=== PATIENT | female | born 1950 | race Caucasian/White ===

== ENCOUNTER 2018-10-13 11:07 | Outpatient (CLI) | payer MEDICARE, SELFPAY ==
[2018-10-13 13:13] LABS: C-Reactive Protein 7.53 mg/dL (0.0-0.3)
[2018-10-13 14:02] LABS: ESR 92 MM/HR (0-30)
[2018-10-14 15:11] LABS: ANA Interpretation Positive (NEGAT); ANA Titer Pattern 1:320 Speckled
== END 2018-10-13 11:27 ==
PROVIDERS: PCP Family Medicine; Visit Provider Family Medicine
DX: M35.3 Polymyalgia rheumatica (principal)
CPT/HCPCS: 36415; 85652; 86038; 86140

== ENCOUNTER 2018-12-29 11:23 | Outpatient (CLI) | payer MEDICARE, SELFPAY ==
[2018-12-29 12:26] LABS: HCT 39.1 % (36.0-46.0); HGB 12.9 g/dL (12.0-15.5); Mean Corpuscular Hemoglobin 28.5 pg (27.0-33.0); Mean Corpuscular Volume 86.5 fL (80-95); Mean Platelet Volume 8.9 fL (8.0-11.0); Platelet Count 287 x1000/uL (130-400); RBC 4.52 m/cumm (4.00-5.20); RBC Distribution Width 14.4 % (11.7-14.6)
[2018-12-29 12:55] LABS: ALT 27 U/L (12-78); AST 17 U/L (15-37); Albumin 4.3 g/dL (3.4-5.0); Alkaline Phosphatase 69 U/L (46-116); Anion Gap 12.3 mmol/L (3-11); BUN 17 mg/dL (7-18); Bilirubin, Total 0.3 mg/dL (0.2-1.0); C-Reactive Protein 0.28 mg/dL (0.0-0.3); CO2 25.7 mmol/L (21.0-32.0); CREATININE 0.82 mg/dL (0.55-1.02); Calcium 9.3 mg/dL (8.5-10.1); Chloride 103 mmol/L (98-107); Creatine Kinase 121 U/L (26-192); Glucose 84 mg/dL (70-100); Potassium 3.5 mmol/L (3.5-5.1); Sodium 141 mmol/L (136-145); Total Protein 7.1 g/dL (6.4-8.2)
[2018-12-29 14:01] LABS: ESR 15 MM/HR (0-30)
[2018-12-30 09:27] LABS: C3 Complement 127 mg/dL (81-157)
[2018-12-30 09:32] LABS: C4 Complement 36 mg/dL (13-39)
[2018-12-30 16:38] LABS: JO 1 Ab, IgG <0.2 U; Scl 70 Antibodies, IgG <0.2 U
[2018-12-31 12:25] LABS: SS-B (La) Ab, IgG 2.3 Units (<20)
[2018-12-31 12:27] LABS: RNP Ab, IgG 2.3 Units (<20); SS-A Antibody 2.5 Units (<20); Sm (Smith) Ab, IgG 2.8 Units (<20)
[2018-12-31 16:56] LABS: LA Cascade Summary SEE COMMENTS; Silica Clotting Time 37.4 sec (30.2-48.4)
== END 2018-12-29 11:43 ==
PROVIDERS: PCP Family Medicine; Visit Provider Internal Medicine Rheumatology
DX: R76.8 Other specified abnormal immunological findings in serum (principal); M35.3 Polymyalgia rheumatica; Z79.899 Other long term (current) drug therapy
CPT/HCPCS: 36415; 80053; 82550; 85027; 85652; 86147; 87116; 84295; 86140; 86160; 86235

== ENCOUNTER 2019-11-26 08:50 | Outpatient (CLI) | payer MEDICARE, SELFPAY ==
--- NOTE | 2019-11-26 09:15 | DI.RAD_ITS ---
EXAM: XR LUMBAR SPINE COMPLETE INDICATION: eval lumbar spine for stenosis, BACK PAIN COMPARISON: No exams were available for comparison TECHNIQUE: 2D digital imaging was performed. FINDINGS: The vertebral bodies are well maintained in height. Small to moderate sized endplate osteophytes are seen throughout. The disc spaces are narrowed at all levels, the greatest at L 4-5 and L5-S1. There is also disc space narrowing of the lower thoracic spine. There is severe degenerative changes of th e facet joints. There is mild spondylolisthesis at L2-3. No spondylolysis is seen. There is a mild degenerative scoliosis. The aorta is calcified but normal in diameter. There is neural foraminal n arrowing which appears severe at L 5-S1. Degenerative changes are also seen of the SI joints and hip joints. IMPRESSION: Advanced degenerative disc changes and facet degenerative changes. DATA REPOSITORY: RADIATION DOSE DELIVERED:
== END 2019-11-26 09:10 ==
PROVIDERS: PCP Family Medicine; Referring Provider Family Medicine; Visit Provider Student in an Organized Health Care Education/Training Program
DX: M25.78 Osteophyte, vertebrae (principal); M48.07 Spinal stenosis, lumbosacral region; M47.27 Other spondylosis with radiculopathy, lumbosacral region; M47.26 Other spondylosis with radiculopathy, lumbar region; M51.16 Intervertebral disc disorders with radiculopathy, lumbar region; M51.14 Intervertebral disc disorders with radiculopathy, thoracic region; M48.062 Spinal stenosis, lumbar region with neurogenic claudication
CPT/HCPCS: 99214; 72110

== ENCOUNTER 2022-02-01 02:05 | Outpatient (CLI) | payer MEDICARE, SELFPAY ==
[2022-02-01 12:56] LABS: Anion Gap 10.3 mmol/L (3-11); BUN 15 mg/dL (7-18); CO2 28.7 mmol/L (21.0-32.0); CREATININE 0.7 mg/dL (0.55-1.02); Calcium 9.1 mg/dL (8.5-10.1); Chloride 103 mmol/L (98-107); Glucose 103 mg/dL (74-106); Potassium 3.7 mmol/L (3.5-5.1); Sodium 142 mmol/L (136-145)
== END 2022-02-01 02:06 | disposition home or self-care (01) ==
LOC: LOS 02:05
PROVIDERS: PCP Family Medicine; Visit Provider Family Medicine
DX: E87.1 Hypo-osmolality and hyponatremia (principal)
CPT/HCPCS: 36415; 80048

== ENCOUNTER 2022-10-24 11:39 | Outpatient (CLI) | payer MEDICARE, SELFPAY ==
--- NOTE | 2022-10-24 10:15 | DI.RAD_ITS ---
Exam(s) XR KNEE RT 2V AP,LAT EXAM: XR KNEE RT 2V AP,LAT CLINICAL HISTORY: R knee pain. TECHNIQUE: 2D digital imaging was performed. COMPARISON: CR LEFT KNEE LIMITED 1 OR 2 VIEWS from 01/24/2017 CR XR STANDING ALIGNMENT from 10/24/2022 FINDINGS: There is advanced narrowing of the medial compartment right knee. Also chondrocalcinosis. Lateral c ompartment exhibits normal height. There appears to be a joint effusion. No osseous lesions. IMPRESSION: Degenerative changes as described above, most evident in the medial compartment. Also chondrocalcino sis seen. DATA REPOSITORY: RADIATION DOSE DELIVERED:
--- NOTE | 2022-10-24 10:15 | DI.RAD_ITS ---
Exam(s) XR STANDING ALIGNMENT EXAM: XR STANDING ALIGNMENT CLINICAL HISTORY: R knee pain. TECHNIQUE: 2D digital imaging was performed. COMPARISON: CR BONE LENGTH from 01/24/2017 FINDINGS: 3 views Again noted is a left knee prosthesis which appears satisfactory. There is narrowing of the medial c ompartment of the opposite-right knee which has somewhat progressed from the previous study of 1017. Chondrocalcinosis noted in the lateral compartment right knee. Left hip unremarkable. There are mo derate degenerative changes right, slightly more so than previous. Ankles unremarkable. No osseous lesions. Bone density normal. IMPRESSION: As above. There appears to be progression of narrowing of the medial compartment of the right knee a nd some progression of degenerative change in the right hip when compared to 2017. DATA REPOSITORY: RADIATION DOSE DELIVERED:
== END 2022-10-24 11:40 | disposition home or self-care (01) ==
LOC: DIORS 11:40
PROVIDERS: PCP Family Medicine; Referring Provider Family Medicine; Visit Provider Physician Assistant
DX: M17.11 Unilateral primary osteoarthritis, right knee
CPT/HCPCS: 20610; 73560; 77073; J1040

== ENCOUNTER 2023-01-30 02:05 | Outpatient (CLI) | payer MEDICARE, SELFPAY ==
[2023-01-30 09:55] LABS: HCT 37.8 % (36.0-46.0); HGB 13.2 g/dL (11.2-15.7); MCHC 34.9 % (32.0-36.0); MCV 86 fL (80-95); MPV 8.3 fL (8.0-11.0); Platelet Count 361 10^3/uL (130-400); RDW 12.5 % (11.7-14.6); RDW-SD 39.8 fL; WBC 6.72 10^3/uL (4.4-10.8)
[2023-01-30 10:20] LABS: Anion Gap 6.3 mmol/L (3-11); BUN 20 mg/dL (7-18); CO2 28.7 mmol/L (21.0-32.0); CREATININE 0.8 mg/dL (0.55-1.02); Calcium 9.8 mg/dL (8.5-10.1); Chloride 102 mmol/L (98-107); Estimated GFR 77.75 (mL/min/1.73m2); Glucose 114 mg/dL (74-106); Potassium 3.5 mmol/L (3.5-5.1); Sodium 137 mmol/L (136-145)
== END 2023-01-30 02:06 | disposition home or self-care (01) ==
LOC: LBO 02:05
PROVIDERS: PCP Family Medicine; Visit Provider Student in an Organized Health Care Education/Training Program
DX: M17.11 Unilateral primary osteoarthritis, right knee (principal); Z01.818 Encounter for other preprocedural examination; E87.1 Hypo-osmolality and hyponatremia
CPT/HCPCS: 36415; 80048; 85027

== ENCOUNTER 2023-02-05 05:56 | Day surgery (SDC) | payer MEDICARE, SELFPAY ==
--- NOTE | 2023-02-04 16:55 | ANES.PREOP_ITS ---
General Info Date of Service Date Performed: 02/05/23 Height: 5 ft Weight: 71 kg Body Mass Index (BMI): 30.5 Surgical Procedure: Operation Date: 02/05/23 07:40 Proposed Procedure Side Surgeon p Knee Total Arthroplasty, Cementless CR Right Petr Garcia MD Meds Allergies and Home Medications Allergies Allergy/AdvReac Type Severity Reaction Status Date / Time amoxicillin trihydrate Allergy Severe SKIN RASH Verified 02/05/23 06:04 [From Augmentin] potassium clavulanate Allergy Severe SKIN RASH Verified 02/05/23 06:04 [From Augmentin] codeine AdvReac Intermediate Nausea, Verified 02/05/23 06:04 vomiting oxycodone [From Percocet] AdvReac Intermediate Nausea Verified 02/05/23 06:04 hydromorphone AdvReac Mild Nausea, Verified 02/05/23 06:04 vomiting Home Medication Medication Instructions Recorded calcium 1 ea PO PRN PRN 01/03/17 carbonate,citrate-magnesium oxide 200 mg calcium-50 mg tablet (CalMag Thins) multivitamin (Daily Multi-Vitamin 1 ea PO DAILY 05/12/18 tablet) hydrochlorothiazide 12.5 mg tablet 12.5 mg PO DAILY #90 tabs 08/02/22 amlodipine 10 mg tablet 10 mg PO DAILY #90 tabs 12/23/22 acetaminophen 650 mg 1,300 mg PO Q12H 12/24/22 tablet,extended release (Tylenol 8 Hour) naproxen 250 mg tablet 250 mg PO .Q3DAY PRN 12/24/22 omeprazole 40 mg capsule,delayed 40 mg PO DAILY 02/05/23 release Current Visit Medications: Current Medications Generic Name Dose Route Start Last Admin Trade Name Freq PRN Reason Stop Dose Admin Acetaminophen 1,000 mg 02/05/23 06:00 Acetaminophen 500 Mg Tab PO 02/05/23 16:00 PREOP MARIAH Celecoxib 400 mg 02/05/23 06:00 Celecoxib 200 Mg Cap PO 02/05/23 16:00 PREOP MARIAH Gabapentin 300 mg 02/05/23 06:00 Gabapentin 300 Mg Cap PO 02/05/23 16:00 PREOP [facility] Tranexamic Acid 1,000 mg/ 60 mls @ 360 mls/hr 02/05/23 06:00 Sodium Chloride IVPB 02/05/23 16:00 PREOP [facility] Ringer's Solution 1,000 mls @ 80 mls/hr 02/05/23 06:00 IV 02/05/23 23:59 INFUSION MARIAH Cefazolin Sodium/Dextrose 2 gm in 50 mls @ 100 mls/hr 02/05/23 06:00 Ancef Duplex IVPB 02/05/23 23:59 PREOP MARIAH IV Miscellaneous Supplies 1 each 02/05/23 06:00 Iv Access IV 02/05/23 23:59 DIRECTED MARIAH Sodium Chloride 0 ml 02/05/23 06:00 Normal Saline Flush 10 Ml Syr IV 02/05/23 23:59 PRN PRN Sodium Chloride 0 ml 02/05/23 06:00 Normal Saline 10 Ml Vial IJ 02/05/23 23:59 DIRECTED PRN Sterile Water 0 ml 02/05/23 06:00 Water,Injection,Sterile 10 Ml Vial IJ 02/05/23 23:59 DIRECTED PRN PFSH Active Problems Active Problems: Problem Status Onset Code Primary osteoarthritis of right knee M17.11 GERD (gastroesophageal reflux disease) K21.9 Lumbar spinal stenosis M48.061 PMR (polymyalgia rheumatica) M35.3 Myalgia M79.10 Essential hypertension I10 Right carpal tunnel syndrome 01/09/18 G56.01 Surgical History Surgical History BACK SURGERY (~1976) [place] CHILD X 4 Replacement of total knee joint (01/11/17) LEFT KNEE Tobacco Smoking/Tobacco Use Status: Never Passive smoking exposure: Yes Second hand exposure: Yes Alcohol Alcohol Intake: never Substance Use Substance use: Never Substance use type: does not use Vital Signs and Lab Results Vital Signs Most Recent Vital Signs in EMR: Temp Pulse Resp BP Pulse Ox 36.6 C 75 16 152/61 H 98 02/05/23 06:07 02/05/23 06:07 02/05/23 06:07 02/05/23 06:07 02/05/23 06:07 Lab Results Blood Type / Crossmatch: No Data to Display Complete Blood Count: White Blood Count 6.72 10^3/uL (4.4-10.8) 01/30/23 09:45 Red Blood Count 4.40 10^6/uL (3.93-5.22) 01/30/23 09:45 Hemoglobin 13.2 g/dL (11.2-15.7) 01/30/23 09:45 Hematocrit 37.8 % (36.0-46.0) 01/30/23 09:45 Platelet Count 361 10^3/uL (130-400) 01/30/23 09:45 Complete Metabolic Panel: Sodium 137 mmol/L (136-145) 01/30/23 09:45 Potassium 3.5 mmol/L (3.5-5.1) 01/30/23 09:45 Chloride 102 mmol/L (98-107) 01/30/23 09:45 Carbon Dioxide 28.7 mmol/L (21.0-32.0) 01/30/23 09:45 BUN 20 mg/dL (7-18) H 01/30/23 09:45 Creatinine 0.8 mg/dL (0.55-1.02) 01/30/23 09:45 Est GFR (CKD-EPI 2020) 77.75 (mL/min/1.73m2) 01/30/23 09:45 Calcium 9.8 mg/dL (8.5-10.1) 01/30/23 09:45 Glucose 114 mg/dL (74-106) H 01/30/23 09:45 Liver Function Panel: No Data to Display Coagulation Panel: No Data to Display Cardiac Panel: No Data to Display Arterial Blood Gas: No Data to Display Venous Blood Gas: No Data to Display Pancreas Panel: No Data to Display Thyroid Panel: No Data to Display Infectious Disease: No Data to Display Blood Cultures: No Data to Display Toxicology Panel: No Data to Display Anesthesia Assessment and Plan Anesthesia History Personal History: No History of Anesthesia Complications Family History: No Family History of Anesthesia Complications Exercise Tolerance Exercise Tolerance: Metabolic Equivalents>4 Cardiac & Pulmonary Exam Cardiac Exam: Normal S1/S2 Heart Sounds Pulmonary Exam: Clear Bilateral Breath Sounds Implantable Cardiac Device Does patient have a Pacemaker or an ICD?: No Airway Exam Known Difficult Airway: No Mallampati Class: 2 Mouth Opening: Normal (> 3cm) Thyromental Distance: Greater than 3 cm Neck Range of Motion: Limited ROM Neck Circumference: Normal Teeth Condition: Normal Dentition ASA Classification ASA Score: ASA 2 Emergency Case?: No NPO Status NPO Status: NPO Clears >2 hours, Solids >8 hours Anesthesia Plan Resuscitation Status: Full Code Anesthesia Technique: Spinal Anesthesia Airway Planned: Natural Airway Pain Management: Surgeon and patient request nerve block Monitors Used: Standard Monitors Preoperative Comments:: 72 yo female for TKA. Sig PMHx: GERD (well controlled with omeprazole), lumbar spinal stenosis (did well with last spinal), lumbar surgery 70's, polymyalgia rumatica (followed at [place], hydroxychloroquine?), HTN, never smoker, Previous Anes: - TKA, midaz/fent for spinal - difficult multiple attempts, prop sedation @ 50, natural airway, no issues. - ECTR, midaz, prop, natural airway, no issues.
[2023-02-05] VITALS (11 sets, daily range): BP systolic 126–184; BP diastolic 47–74; PULSE 66–87; RESP 14–19; TEMP 36.3–36.8; O2SAT 93–99; BMI 30.5
[2023-02-05] MEDS: Celecoxib 200 MG CAP 400 MG PO (06:42)
[2023-02-05] MEDS: Acetaminophen 500 MG TAB 1000 MG PO (06:42)
[2023-02-05] MEDS: Gabapentin 300 MG CAP PO (06:43)
[2023-02-05] MEDS: Lactated Ringers 1,000 ML 80 ML IV (06:43)
--- NOTE | 2023-02-05 07:22 | PDOC.DSDIS_ITS ---
Date of service: 02/05/23 Time of Service: 07:22 Discharge Plan Disposition Patient Disposition: Home Condition: Good Discharge Details Reason For Visit: R TKR Attending Provider: Petr Garcia Primary Care Provider: Jaylen Caballero Home Meds and New Rx's Prescriptions: New acetaminophen 500 mg tablet 1,000 mg PO TID Qty: 90 3RF aspirin 81 mg tablet,delayed release (DR/EC) 81 mg PO BID Qty: 60 0RF celecoxib 200 mg capsule 200 mg PO BID Qty: 60 0RF dexamethasone 4 mg tablet 4 mg PO DAILY Qty: 2 0RF gabapentin 300 mg capsule 300 mg PO QHS Qty: 14 0RF tramadol 50 mg tablet 50 mg PO Q4H PRNQty: 30 0RF Continued multivitamin [Daily Multi-Vitamin] 1 EACH tablet 1 ea PO DAILY hydrochlorothiazide 12.5 mg tablet 12.5 mg PO DAILY Qty: 90 3RF amlodipine 10 mg tablet 10 mg PO DAILY Qty: 90 2RF CalMag Thins 1 EACH tablet 1 ea PO PRN PRN omeprazole 40 mg capsule,delayed release(DR/EC) 40 mg PO DAILY Discontinued acetaminophen [Tylenol 8 Hour] 650 mg tablet extended release 1,300 mg PO Q12H naproxen 250 mg tablet 250 mg PO .Q3DAY PRN Discharge Instructions Additional Instructions: Total Knee Discharge Instructions Activity: The most important activity is to walk and to work on gentle motion (both flexion and extension). You should try to take short walks a few times a day. It is important that when resting you work on keeping the knee straight. Avoid putting a pillow behind the knee as this will encourage flexion. Work on range of motion exercises as provided by Physical Therapy. - Start outpatient physical therapy within 2 weeks. - You should wear the NEVILLE hose on both legs for 2 weeks. You may remove these at night. You may also use any compression sock in place of the NEVILLE hose. - Utilize [employer] to review exercises, see videos on exercises and obtain basic information pertaining to your surgery and your recovery. Dressing: Remove the Alhaji wrap by 2 days after your surgery and put on the NEVILLE stocking given to you from the hospital. Keep the surgical dressing (underneath the ALHAJI wrap) in place for at least one week. After the first week it may be removed and replaced with light gauze and tape or nothing. The wound and dressing may get wet after 3 days but avoid soaking the dressing or otherwise it will need to be changed. Many people prefer covering the dressing with cling wrap (saran wrap) to minimize it from getting soaked. If it gets wet, just pat dry. If it starts to peel off then it will need to be changed. Medications: - You should take Tylenol and anti-inflammatory Celebrex as your primary pain control medications. If the Celebrex is too expensive or not covered, please call the office for another alternative (Advil/Ibuprofen or Naproxen/Aleve) - You have been prescribed a stronger pain medication Tramadol for breakthrough pain, take as needed as prescribed. - You should continue your omeprazole to help reduce stomach acid and reflux. - You have been prescribed Gabapentin to take at night for restlessness and nerve pain. - You will be taking Aspirin 81mg twice a day for DVT prevention unless instructed otherwise. - You have also been prescribed Decadron to take to control post-operative nausea and pain. You will start this tomorrow. - If you have constipation you should take Colace or Miralax (both [id number]). It takes most people 3-4 days to have a bowel movement. Follow-up: 2 weeks If you have any acute concerns or questions, please do not hesitate to contact the office at [phone]. You may contact Dr. Garcia with any questions after hours through the hospital at [phone] or on his cell phone at [phone]. Referrals: Petr Garcia MD [ [facility] STAFF PHYSICIAN] - Equipment/Supplies: Walker Activity:: Activity as Tolerated Shower/Bathe:: 72 hours Diet:: As Tolerated Discharge Orders Discharge Orders: Discharge Order (Routine); Ordered 02/05/23 Ordered By: James Raines
--- NOTE | 2023-02-05 07:23 | W.ANESNERVE ---
Nerve Block Single Injection Procedure Date and Time Date Performed: 02/05/23 Procedure Start: 07:10 Location Where Procedure Performed Procedure Location: Day Surgery Unit Reason Performed: Postoperative Analgesia Requesting Provider: Petr Garcia Timeout Performed Timeout Performed: Yes Monitoring Used ECG, Blood Pressure and SpO2 Sterility Sterility: Hand Hygiene, Surgical Cap, Surgical Mask, Sterile Gloves and Chlorhexidine Sedation Given During Procedure Sedation Given (Indicate Dose Given): Versed IV Dose:: 1 mg Patient Mental Status Patient Mental Status: Sedate with meaningful communication Nerve Block 1st Nerve Block: Laterality: Right Block Type: Adductor Canal Ultrasound Image Saved?: Yes Needle / Catheter Used: 100mm SonoPlex II Local Anesthetic Bolus (Indicate Dose Given): Lidocaine used for local infiltration of skin and Bupivacaine 0.375% Dose:: 10 mL Additives (Indicate Dose Given): None Ultrasound: Sterile probe cover and gel used Nerve Stimulator: Supplement to Ultrasound use and No twitch or parasthesia noted < 0.5 mA Paresthesia: None Procedure Tolerated: No Complications Procedure Outcome: Successful Performed By: Bandar Hubbard
[2023-02-05] MEDS: ceFAZolin 2 GM/50 ML BAG IVPB (07:49)
--- NOTE | 2023-02-05 10:23 | W.ANESPOSTOP ---
Postoperative Evaluation Date, Time and Location Date Performed: 02/05/23 Time Performed: :23 Patient Location: Day Surgery Unit Vital Signs Most Recent Imported Vital Signs: Most Recent Vital Signs Temp Pulse Resp BP Pulse Ox 36.5 C 68 18 143/63 H 97 02/05/23 10:02 02/05/23 10:02 02/05/23 10:02 02/05/23 10:02 02/05/23 10:02 Pain Score Most Recent Pain Score: Most Recent Pain Score Pain Level 0 02/05/23 10:02 Assessment Mental Status: Awake (Alert & Oriented to Patient Baseline) Airway and Respiratory Function: Patent airway with normal (patient baseline) respiratory exam Cardiovascular Function: Hemodynamically Stable Hydration Status: Adequately Hydrated Nausea & Vomiting: No Nausea or Vomiting Pain: Pain is tolerable per patient Peripheral Nerve Block: Regional nerve block not resolved at time of post operative discharge
[2023-02-05] MEDS: Normal Saline Flush 10 ML SYR IV (11:24)
--- NOTE | 2023-02-05 12:40 | IN_ITS ---
PT Notes Visit Reasons: R TKR Physical Therapy Day Surgery Initial Evaluation Date: 02/05/2023 Referring Doctor: NOLAN Hutton PT Orders: PT CONSULT: S/P Ortho Surgery Precautions: WBAT on the R LE with AD. Patient Profile/Admitting Diagnosis: Ratna is a 72-year-old female with primary osteoarthritis of the right knee and is status post right total knee arthroplasty on postoperative day 0. PMHX: Surgical History? BACK SURGERY (~1976) [place] CHILD X 4 Replacement of total knee joint (01/11/17) LEFT KNEE Social History/Home Situation: Lives alone in a private home with no stairs to enter. Takes care of of over 70 chickens in her property. All aspects of ADLs prior to surgery. Children live close by and have been very good support. Equipment Owned/DME: [facility] Subjective: Pleasant and cooperative.. Reports being mildly lightheaded upon sitting up from a reclined position on bedside chair. Reports pain in the right knee at 2/10 at rest and with movement. Objective: General Observation: Seated on bedside chair. Alhaji wraps to right LE. Cryo/Cuff to right knee. TEDs to left leg. Mental Status: Alert and oriented x4. Pain: 2/10 in the left knee ROM: Right Lower Extremity: Hip flexion WFL. Hip abduction WFL. Knee flexion WFL. Ankle dorsiflexion WFL. Ankle plantarflexion WFL. Left Lower Extremity: Hip flexion WFL. Hip abduction WFL. Knee flexion about 10- 100 degrees. Knee extension -10. Ankle dorsiflexion WFL. Ankle plantarflexion WFL. Strength: Right Lower Extremity: Hip flexors 5/5. Hip abductors 5/5. Knee flexors 5/5. Knee extensors 5/5. Ankle dorsiflexors 5/5. Ankle plantarflexors 5/5. Left Lower Extremity:Hip flexors 4/5. Hip abductors 4/5. Knee flexors 3-/5. Knee extensors 3-/5. Ankle dorsiflexors 5/5. Ankle plantarflexors 5/5. Sensation: Intact as to pain and light pressure in bilateral lower extremities. Bed Mobility/Transfers: Sit to stand contact-guard assist Stand to sit standby assist Bed to chair stand by assist Chair to bed stand by assist Gait: Tolerated level surface of ambulation of 250 feet using front-wheeled walker requiring contact-guard assist with step-to gait pattern. Lacks full knee extension on the right at mid stance. Minimal cueing provided for walker management and posture. Nurse Eren assisting for safety. Stairs: Ascended inch steps 4 x 6 inch steps holding onto bilateral rails with step to gait pattern requiring contact-guard assist with no report of increased pain. Minimal cueing for correct technique. Balance: Static Sitting: Normal Dynamic Sitting: Normal Static Standing: Fair Dynamic Standing: Fair Special Tests: Mobility Limitations Standardized Measure [facility] AM-PAC 6 clicks Basic Mobility Inpatient Short Form: Raw Score: 21 CMS Score: 29% deficit Informed Consent/Education: Patient instructed in purpose of PT consult. Packet containing TKA exercise protocol has been given to patient. Education and training on initial set of exercises that can be done at home have been completed with patient and patient's daughter.. NEURO RE-ED: Facilitated coordinated movements for bed mobility, transfers, and ambulation tasks to maximize safety and reduce pain report. Instructed patient and daughter about correct performance of HEP for the next 2 weeks using [employer] susan print out with details as follows: Access Code: [email or web address] URL: [email or web address] Date: 02/05/2023 Prepared by: Ada Richmond Exercises - Supine Quad Set - 1 x daily - 7 x weekly - 1 sets - 10 reps - 5 hold - Supine Heel Slide - 1 x daily - 7 x weekly - 1 sets - 10 reps - 5 hold - Supine Ankle Pumps - 1 x daily - 7 x weekly - 1 sets - 10 reps - 5 hold - Small Range Straight Leg Raise - 1 x daily - 7 x weekly - 1 sets - 10 reps - 5 hold - Seated March - 1 x daily - 7 x weekly - 1 sets - 10 reps - 5 hold Assessment: Ratna requires use of a front wheeled walker to maximize independence and reduce fall risk. Patient presents with clinical signs and symptoms consistent with c urrent/admitting diagnoses that have resulted to mobility limitations, gait instability, generalized weakness, and impairment of motor control as demonstrated by the following impairment level findings: 1. Decreased strength to R knee major muscle groups 2. Impaired standing balance 3. Limitation of joint range of motion in R knee Impairments are contributing to the following functional limitations: 1. Inability to safely ambulate without assistive device 2. Increase completion time for mobility ADL performance 3. Increased fall risk Patient is assessed as a 95187 moderate complexity based on the following: History: 72-year-old female with impairment level findings, functional limitations, and past medical history as indicated above Examination: Demonstrable impairment in strength, balance, and mobility level with underlying impairments and functional limitations as documented above Presentation: Ev[employer] Decision [employer]in moderate Goals: N/A. PT evaluation and 1-2 treatment sessions only for functional mobility training using recommended AD and for HEP instruction. Plan of Care/Treatment Plan: N/A. PT evaluation and 1-2 treatment session only for functional mobility training using recommended AD and for HEP instruction. DISCHARGE RECOMMENDATIONS: Home when medically cleared by orthopedic surgeon. Recommend outpatient PT services in order to optimize functional mobility outcomes and facilitate return to independent community ambulation without an assistive device. TREATMENT CODE/TIME: 56641 x 20 minutes, 95180 x 23 minutes beginning at 12:43 PM. Thank you for the opportunity to participate in the care of this patient. Ada Richmond PT, DPT, CLT [facility] [place], [place]
--- NOTE | 2023-02-05 15:17 | W.PM.OP ---
Date of service: 02/05/23 Time of Service: 09:00 Operative Note Operative Note DATE OF PROCEDURE: 02/05/23 PRE-OP DIAGNOSIS: Right Knee Arthritis POST-OP DIAGNOSIS: same PROCEDURE: Right Total Knee Replacement SURGEON: Petr Garcia ADULT CROSSING GUARD: Lex Raines ANESTHESIA TYPE: General LMA/ETT and Spinal Refer to Anesthesia Record ESTIMATED BLOOD LOSS: 200 PATHOLOGY: none sent TOURNIQUET TIME: 0 COMPLICATIONS: None Patient was transported to: PACU Patient's condition: stable Implants: 1. Depuy Attune Cementless Cruciate Retaining Femoral Component, Size 6 Narrow 2. Depuy Attune Cementless Fixed Bearing Tibial Component, Size 4 3. Depuy Attune 6x7mm CR/FB Poly 4. Depuy Attune Patellar Component, Size 35 Indications: I have seen Ratna in clinic for symptoms of knee arthritis, confirmed with radiographic findings. She has exhausted nonoperative methods and was having significant limitations in daily function and desired better function and less pain. I discussed the technical details of a knee replacement. I explained the risks of the procedure to include, but not limited to, bleeding, infection, pain, stiffness, fracture, damage to nerves and vessels, damage to muscles and tendons, loosening, need for repeat procedure, blood clot and cardiopulmonary demise. Despite these risks, Ratna elected to proceed. Findings: There was significant signs of arthritis throughout the knee. Procedure Description: Ratna was greeted in the preoperative holding area where the correct side was identified and marked. The consent was reviewed with the patient and signed. The history and physical was updated. All questions were answered. Preoperative medications were administered: Acetaminophen 1000mg, Celebrex 400mg, and Gabapentin 300mg. An adductor canal block was then administered by the anesthesia team in the PACU. Ratna was taken back to the operating room. A spinal anesthestic was then administered. Ultrasound was utilized. The patient was placed into the supine position on the operating room table. Posts were placed for positioning during the procedure. All bony prominences were well padded. Prophylactic antibiotics in the form of Cefazolin were administered. 1g of Tranxemic Acid was given intravenously within 30 minutes of incision. The right leg was then prepped with Chloraprep and draped in a standard fashion with impervious stockinette. A second prep with Chloraprep was performed prior to application of Iodine impregnated skin protection. During this prep and drape. It was noticed that she still was having some movement about the leg. A quick pinch of the skin showed that she was still responding and therefore she was converted to a general anesthetic, assuming an incomplete spinal set up given that she was unable to move her feet or toes. Then, a timeout to confirm correct identity, side and site, procedure, allergies, anesthesia, and medical concerns was performed. With the knee in some flexion, a midline incision was made overlying the knee. Full thickness skin flaps were raised once the extensor mechanism was encountered. These were raised medially and laterally. Any bleeding was controlled with electrocautery. Once the extensor mechanism was fully exposed, a medial parapatellar arthrotomy was performed in a flexed position. All bleeding from the arthrotomy and the geniculate arteries was coagulated. A medial subperiosteal peel was performed with electrocautery to the midcoronal plane. Due to the significant varus deformity the entire medial tibial plateau was exposed. The fat pad was removed while keeping the patellar tendon protected. The anterior distal femur synovium was removed for later visualization. The ACL and PCL were resected and the anterior horn of the lateral meniscus was transected. The knee was then flexed with the patella everted. Large osteophytes from the tibia were removed. Large osteophytes from the femur were removed. Using a step drill, and based on preoperative templating, the femoral canal was entered. This was done with a step drill without any difficulty. The intramedullary distal femoral cut guide was inserted, set to a 6 degree valgus cut and 9mm cut thickness. The distal femoral cut guide was then held in position and pinned. With the soft tissues protected, the distal cut was performed. This was passed over a few times to ensure a planar cut. I then turned attention to the tibia. The extramedullary guide was placed onto the leg. The distal aspect was slid medial to adjust for position of center of ankle and stay in line with shaft of the tibia. Approximately 3-5 degrees of posterior slope was kept in the proximal cutting guide. The center of the guide was aligned with the PCL. The stylus was used to assess cut thickness. The medial side, most involved side, was set for a 4mm cut. This was then held in position and pinned into place with 2 additional pins and a cross pin for stability. The medial and lateral collateral ligaments were protected and the cut was performed. With this completed, it was assessed and noted to be of appropriate dimensions. The guide was removed. A spacer block was inserted and the knee was brought into extension. The 6mm spacer block provided full extension, without hyperextension and with stability of both the medial and lateral collateral ligaments was assessed. The pins from the femur and the tibia were then removed. The distal femur was then sized. The anterior stylus was placed onto the lateral ridge of the anterior femur. This indicated a size 6 narrow femur. The external rotation of the guide was adjusted to 3 degrees to match the epicondylar axis, perpendicular to Teodora?s line. The 4-in-1 cutting guide was the placed. The posterior medial femur cut was evaluated and appeared of good thickness. The spacer block was inserted underneath the cutting guide and stability was confirmed in 90 degrees of flexion. An gary wing was used to confirm appropriate position of the anterior cut to avoid notching. This cutting guide was ensured to be flush on the cut surface and then pinned into place with headed pins. While protecting the soft tissues, quad tendon, and collateral ligaments, the anterior and posterior cuts were performed with a saw. The central two pins were removed and the posterior and anterior chamfers were cut next. The notch-cutting guide was placed. This was pinned to lateralize the femoral component as much as possible while keeping it flush on the cut surface. This was then pinned into position. A reciprocating saw was used to make the notch cut. A rasp smoothed the cut surfaces. The medial and lateral menisci were removed. A trial femoral component was then inserted, impacted down to the cut surfaces, and the lug holes were drilled. A provisional trial tibial component was placed and the knee was brought through range of motion. The polyethylene was trialed until there was good flexion and extension with excellent stability to the medial and lateral collaterals. The patella was tracking without thumbs. A size 7mm polyethylene component provided the best range of motion and stability with less than 2mm gapping with medial and lateral stress and full extension without significant hyperextension. The tibial cut surface was fully exposed. The tibia was then sized as a 4. The tibia had been previously marked during trialing to correspond to the center of the tibial component to help with rotation. The trial was aligned to this lex, approximately rotated to the medial 1/3rd of the tibial tubercle. The trial was pinned into place. The tibia was prepared with a reamer and a keel punch and lug holes. The knee was then brought into extension and the patella was measured as 25mm. Using the patellar clamp and cut guide, this was resected to a flat surface with at least 13mm of thickness remaining. The size 35 patella fit the best. This was oriented and then clamped into position. The lugs were drilled. The trial components were removed. The final components were opened on the back table. The periosteal and capsular tissues, especially posteriorly, around the knee were then systematically injected with a periarticular cocktail consisting of 246mg of Ropivacaine, 0.5mg of Epinephrine, 0.08mg of Clonidine, and 30mg of Ketorolac, diluted to 100cc. On the back table, with the implants opened, the cement was mixed. One batch of high viscosity cement was prepared with vacuum assistance. After the cement was ready a small amount was placed on the cut surface of the patella and the patellar button was clamped into position and held. While the cement was hardening, the cementless knee components were placed. Starting with the tibial component, the tibia was subluxed anteriorly and the lug holes of the component were lined up. The tibia was then impacted with an impactor and mallet until the tibial component was in contact with the tibia. The final polyethylene component was inserted. Then, the femoral component was inserted. The lug holes were aligned and the component was impacted into position. The knee was irrigated with Surgiphor Betadine solution. This was allowed to sit in the knee for 3 minutes and then it was irrigated out with saline. After the cement had finally cured, approximately 15min, the clamp was removed from the patella and the knee was taken through range of motion. The patella was tracking with a no-thumbs technique. The capsule was then reapproximated with a No. 1 Vicryl at multiple locations. The capsule was finally closed with a No. 2 Stratafix, barbed suture. The second dosing of 1g TXA was started. Deep tissues were then reapproximated with 0 Vicryl and 2-0 Vicryl. The skin was closed with a running 3-0 Monocryl in a subcuticular fashion. This was reinforced with skin glue. A Mepilex silver dressing was applied along with a [id number] DEDRICK wrap. A CryoCuff was applied. Ratna was transferred to the hospital bed without difficulty an suffering no apparent complication. Ratna has a good prognosis. Physical therapy will start today and without restrictions, weight-bearing as tolerated. Aspirin 81mg BID will be used for DVT prophylaxis.
== END 2023-02-05 14:30 | disposition home or self-care (01) ==
PROVIDERS: PCP Family Medicine; Visit Provider Student in an Organized Health Care Education/Training Program
PROC: (CPT 27447; principal; 2023-02-05 07:30)
DX: M17.11 Unilateral primary osteoarthritis, right knee (principal)
CPT/HCPCS: 27447; C1776; 76942; 97162; 97530; J0690; J1100; J2250; J2370; J2405; J2704

== ENCOUNTER 2023-02-20 10:10 | Outpatient (CLI) | payer MEDICARE, SELFPAY ==
--- NOTE | 2023-02-20 09:30 | DI.RAD_ITS ---
Exam(s) XR KNEE RT 2V AP,LAT XR STANDING ALIGNMENT EXAM: XR KNEE RT 2V AP,LAT and XR standing alignment CLINICAL HISTORY: 1st postop R TKA. TECHNIQUE: 2D digital imaging was performed of the right knee. Six views obtained. AP and lateral views were obtained. COMPARISON: CR XR STANDING ALIGNMENT from 10/24/2022 CR XR KNEE RT 2V AP,LAT from 10/24/2022 FINDINGS: BONES: There are degenerative changes seen in the hips characterized by joint space narrowing and ost eophytes. There is an old left total knee replacement which appears within normal limits. Since the prior examination, there has been placement of a right total knee replacement. The orthopedic hardw are is in good position. The bones are intact and normally mineralized. The ankles are well maintai noemy.There is no significant leg length discrepancy. SOFT TISSUE: Normal. IMPRESSION: 1. Interval placement of a right total knee replacement which appears in good position. 2. Degenerative changes of the hips bilaterally. 3. Old left total knee replacement. DATA REPOSITORY: RADIATION DOSE DELIVERED:
== END 2023-02-20 10:11 | disposition home or self-care (01) ==
LOC: DIORS 10:10
PROVIDERS: PCP Family Medicine; Referring Provider Family Medicine; Visit Provider Physician Assistant
DX: Z96.651 Presence of right artificial knee joint (principal); Z47.1 Aftercare following joint replacement surgery
CPT/HCPCS: 73560; 77073

== ENCOUNTER → 2023-03-21 10:17 | Outpatient (BNVA) | payer MEDICARE, SELFPAY | PROVIDERS: PCP Family Medicine; Referring Provider Family Medicine; Visit Provider Physician Assistant | DX: Z47.1 Aftercare following joint replacement surgery (principal); Z96.651 Presence of right artificial knee joint ==

== ENCOUNTER → 2023-05-02 10:47 | Outpatient (BNVA) | payer MEDICARE, SELFPAY | PROVIDERS: PCP Family Medicine; Referring Provider Family Medicine; Visit Provider Student in an Organized Health Care Education/Training Program | DX: Z47.1 Aftercare following joint replacement surgery (principal); Z96.651 Presence of right artificial knee joint ==

== ENCOUNTER 2023-05-09 12:34 | Day surgery (SDC) | payer MEDICARE, SELFPAY ==
[2023-05-09 12:55] VITALS: BP 150/67; PULSE 77; RESP 16; TEMP 36.3; O2SAT 100
[2023-05-09] MEDS: Tropicam./Phenyleph. (1/2.5%) 5 ML BTL OD ×3 (13:01→13:20)
--- NOTE | 2023-05-09 13:06 | ANES.PREOP_ITS ---
General Info Date of Service Date Performed: 05/09/23 Height: 5 ft 1 in Weight: 71.5 kg Body Mass Index (BMI): 29.7 Surgical Procedure: Operation Date: 05/09/23 14:25 Proposed Procedure Side Surgeon p Cataract Extraction with IOL Implant w/Glaucoma Stent Right Rachid Jaime MD Meds Allergies and Home Medications Allergies Allergy/AdvReac Type Severity Reaction Status Date / Time amoxicillin trihydrate Allergy Severe SKIN RASH Verified 05/09/23 13:03 [From Augmentin] potassium clavulanate Allergy Severe SKIN RASH Verified 05/09/23 13:03 [From Augmentin] codeine AdvReac Intermediate Nausea, Verified 05/09/23 13:03 vomiting oxycodone [From Percocet] AdvReac Intermediate Nausea Verified 05/09/23 13:03 hydromorphone AdvReac Mild Nausea, Verified 05/09/23 13:03 vomiting Home Medication Medication Instructions Recorded calcium 1 ea PO PRN PRN 01/03/17 carbonate,citrate-magnesium oxide 200 mg calcium-50 mg tablet (CalMag Thins) multivitamin (Daily Multi-Vitamin 1 ea PO DAILY 05/12/18 tablet) hydrochlorothiazide 12.5 mg tablet 12.5 mg PO DAILY #90 tabs 08/02/22 amlodipine 10 mg tablet 10 mg PO DAILY #90 tabs 12/23/22 acetaminophen 500 mg tablet 1,000 mg PO TID #90 tabs 02/05/23 omeprazole 40 mg capsule,delayed 40 mg PO DAILY 02/05/23 release ibuprofen 200 mg tablet 200 mg PO Q12H PRN 04/15/23 acetaminophen 325 mg tablet 325 mg PO ONCE PRN 05/09/23 (Tylenol) Current Visit Medications: Current Medications Generic Name Dose Route Start Last Admin Trade Name Freq PRN Reason Stop Dose Admin Acetaminophen 1,000 mg 05/09/23 06:00 Acetaminophen 500 Mg Tab PO 06/08/23 05:59 Q4H PRN PRN Balanced Salt Solution 500 ml 05/09/23 06:00 Balanced Salt Soln.-Plus 500 Ml Bag OP 06/08/23 05:59 DIRECTED [facility] Miscellaneous Medication 0 ml 05/09/23 06:00 Prednisolone 1%, Moxifloxacin 0.5%, Nepafenac 0.1% 5ml Btl OD 06/08/23 05:59 DIRECTED [facility] Miscellaneous Medication 0 ml 05/09/23 06:00 05/09/23 13:01 Tropicam./Phenyleph. (1/2.5%) 5 Ml Btl OD 06/08/23 05:59 1 drp DIRECTED [facility] Administration Tetracaine HCl 0 ml 05/09/23 06:00 Tetracaine 0.5% 4 Ml Btl OD 06/08/23 05:59 DIRECTED [facility] PFSH Active Problems Active Problems: Problem Status Onset Code Cortical age-related cataract, right eye H25.011 Nuclear age-related cataract, right eye H25.11 Primary open-angle glaucoma, right eye, moderate stage H40.1112 GERD (gastroesophageal reflux disease) K21.9 Lumbar spinal stenosis M48.061 PMR (polymyalgia rheumatica) M35.3 Myalgia M79.10 Essential hypertension I10 Right carpal tunnel syndrome 01/09/18 G56.01 Surgical History Surgical History BACK SURGERY (~1976) [place] CHILD X 4 History of total left knee replacement (TKR) (01/09/17) History of total right knee replacement (02/05/23) Tobacco Smoking/Tobacco Use Status: Never Passive smoking exposure: Yes Second hand exposure: Yes Alcohol Alcohol Intake: never Substance Use Substance use: Never Substance use type: does not use Vital Signs and Lab Results Vital Signs Most Recent Vital Signs in EMR: Most Recent Vital Signs Temp Pulse Resp BP Pulse Ox 36.3 C L 77 16 150/67 H 100 05/09/23 12:55 05/09/23 12:55 05/09/23 12:55 05/09/23 12:55 05/09/23 12:55 Lab Results Blood Type / Crossmatch: No Data to Display Complete Blood Count: No Data to Display Complete Metabolic Panel: No Data to Display Liver Function Panel: No Data to Display Coagulation Panel: No Data to Display Cardiac Panel: No Data to Display Arterial Blood Gas: No Data to Display Venous Blood Gas: No Data to Display Pancreas Panel: No Data to Display Thyroid Panel: No Data to Display Infectious Disease: No Data to Display Blood Cultures: No Data to Display Toxicology Panel: No Data to Display Anesthesia Assessment and Plan Anesthesia History Personal History: No History of Anesthesia Complications Family History: No Family History of Anesthesia Complications Exercise Tolerance Exercise Tolerance: Metabolic Equivalents>4 Pertinent Negatives Pertinent Negatives: No Symptoms of GERD Cardiac & Pulmonary Exam Cardiac Exam: Normal S1/S2 Heart Sounds Pulmonary Exam: Clear Bilateral Breath Sounds Implantable Cardiac Device Does patient have a Pacemaker or an ICD?: No Airway Exam Known Difficult Airway: No Mallampati Class: 2 Mouth Opening: Normal (> 3cm) Thyromental Distance: Greater than 3 cm Neck Range of Motion: Limited ROM Neck Circumference: Normal Teeth Condition: Normal Dentition ASA Classification ASA Score: ASA 2 Emergency Case?: No NPO Status NPO Status: NPO Clears >2 hours, Solids >8 hours Anesthesia Plan Resuscitation Status: Full Code Anesthesia Technique: MAC Anesthesia Airway Planned: Natural Airway Monitors Used: Standard Monitors Preoperative Comments:: Preoperative Comments:: 72 yo female for TKA. Sig PMHx: GERD (well controlled with omeprazole), lumbar spinal stenosis (did well with last spinal), lumbar surgery 70's, polymyalgia rumatica (followed at [place], hydroxychloroquine?), HTN, never smoker, Previous Anes: - TKA, midaz/fent for spinal - difficult multiple attempts, prop sedation @ 49, natural airway, no issues. - ECTR, midaz, prop, natural airway, no issues.
[2023-05-09 13:08] VITALS: BMI 29.7
[2023-05-09] MEDS: Balanced Salt Soln.-PLUS 500 ML BAG OP (14:07)
[2023-05-09] MEDS: Tetracaine 0.5% 4 ML BTL OD (14:08)
[2023-05-09] MEDS: Duovisc Viscoelastic System EACH 1 EACH (14:09)
[2023-05-09] MEDS: Lidocaine 1% Pres-Free 5 ML VIAL (14:10)
[2023-05-09] MEDS: Povidone-Iodine Ophth 30 ML BTL (14:11)
[2023-05-09] MEDS: Phenylephrine/Lidocaine (15/10) MG/ML 1 ML VIAL (14:11)
[2023-05-09] MEDS: Trypan Blue 0.06% 0.5 ML SYR (14:12)
[2023-05-09 14:35] VITALS: BP 146/69; PULSE 83; RESP 18; TEMP 36.5; O2SAT 98
--- NOTE | 2023-05-09 14:37 | W.PM.DSUDISC ---
Date of service: 05/09/23 Time of Service: 14:37 Discharge Plan Disposition Patient Disposition: Home Discharge Details Attending Provider: Rachid Jaime Primary Care Provider: Jaylen Caballero Home Meds and New Rx's Prescriptions: No Action ibuprofen 200 mg tablet 200 mg PO Q12H PRN multivitamin [Daily Multi-Vitamin] 1 EACH tablet 1 ea PO DAILY hydrochlorothiazide 12.5 mg tablet 12.5 mg PO DAILY Qty: 90 3RF amlodipine 10 mg tablet 10 mg PO DAILY Qty: 90 2RF CalMag Thins 1 EACH tablet 1 ea PO PRN PRN acetaminophen [Tylenol] 325 mg Tablet 325 mg PO ONCE PRN omeprazole 40 mg capsule,delayed release(DR/EC) 40 mg PO DAILY acetaminophen 500 mg tablet 1,000 mg PO TID Qty: 90 3RF Discharge Instructions Stand Alone Forms: Post-op Topical Cataract, Tonio Liconaey (DSU) Discharge Orders Discharge Orders: Discharge Order (Routine); Ordered 05/09/23 Ordered By: Rachid Jaime DS: Diagnosis Discharge Diagnosis (1) Cortical age-related cataract, right eye: Status: Resolved (2) Nuclear age-related cataract, right eye: Status: Resolved (3) Primary open-angle glaucoma, right eye, moderate stage: Status: Chronic
--- NOTE | 2023-05-09 14:38 | W.PM.OP ---
Date of service: 05/09/23 Time of Service: 14:38 Operative Note Operative Note DATE OF PROCEDURE: 05/09/23 PRE-OP DIAGNOSIS: Nuclear/cortical cataract, right eye Primary open-angle glaucoma, right eye, moderate stage PROCEDURE: 1. Cataract extraction using phacoemulsification with intraocular lens implant, right eye 2. Insertion of multiple anterior segment aqueous drainage devices (Glaukos iStent inject) into trabecular meshwork, right eye SURGEON: Rachid Jaime ANESTHESIA TYPE: Local By Surgeon and MAC Refer to Anesthesia Record ESTIMATED BLOOD LOSS: 0 PATHOLOGY: none sent COMPLICATIONS: None Patient was transported to: same day Patient's condition: stable Implants: 1. Tai and Tai Vision Tecnis Eyhance DIB00 intraocular lens 2. Glaukos iStent inject trabecular micro-bypass stent Indications: 1. Progressive decreased vision due to cataract, right eye 2. Primary open angle glaucoma, right eye Procedure Description: CATARACT SURGERY OPERATIVE REPORT PREOPERATIVE DIAGNOSIS: Nuclear/cortical cataract, right eye Primary open-angle glaucoma, right eye, moderate stage POSTOPERATIVE DIAGNOSIS: Same OPERATION: 1. Cataract extraction using phacoemulsification with posterior chamber intraocular lens implant, left eye. 2. Insertion of multiple anterior segment aqueous drainage devices (Glaukos iStent inject) into trabecular meshwork, left eye IOL: IOL Sharples Machine Operator/Model: Tai and Tai Vision Tecnis Eyhance DIB00 IOL Power: +19.0 diopters IOL Serial Number: [id number] Optic Diameter: 6.0mm Haptic/Overall Diameter: 13.0mm PHACO INFO: To [employer] Vision System with OZil and Active Fluidics Cumulative Dispersed Energy (CDE): 7.42 seconds TRABECULAR MICRO-BYPASS STENT INFO: Glaukos iStent inject x 2 Reference Number: [id number] Serial Number: [id number] SURGEON: Rachid Jaime MD, SANDI ANESTHESIA: Monitored Anesthesia Care (MAC), with local sub-tenon's anesthetic infiltration COMPLICATIONS: None SPECIMENS: None INDICATIONS FOR PROCEDURE: The patient is a 72-year-old lady with history of progressive decreased vision in her right eye secondary to the development of nuclear/cortical cataract. She is significantly symptomatic that she desires cataract surgery attempt to improve and maximize her vision. She also has a history of primary open-angle glaucoma of the right eye, moderate stage, managed with topical medications. The option of minimally invasive glaucoma procedure at the time of cataract surgery was offered to the patient and she wished to proceed with this as well. See office notes for detailed information. PROCEDURE: The correct surgical eye was identified and marked as the left eye and the pupil was dilated in the preoperative area using mydriatics and cycloplegics. . She elected to proceed without oral sedation. The patient was brought to the operating room where cardiopulmonary monitoring was instituted and surgical time-out was performed, confirming the correct operative eye and IOL power. Topical anesthesia was administered and ophthalmic povidone-iodine 5% was instilled into the conjunctival fornices. Lidocaine gel was applied to the cornea and the cristine-ocular area was prepped with Betadine 10% solution and draped in the usual sterile fashion for intraocular surgery, including an aperture drape. A Tegaderm transparent film dressing was cut in half and used to cover the lashes and lid margins. Care was taken to sequester the lashes and lid margins under the Tegaderm dressing. A lid speculum was placed between the lids of the operative eye and the To [employer] Rev[employer] operating microscope was maneuvered into position. Zacarias scissors were then used to make a conjunctival buttonhole approximately 6mm posterior to the limbus in the inferonasal quadrant. Blunt dissection was carried out to expose bare sclera, and a blunt-tipped sub-tenon?s anesthesia cannula was introduced and passed posteriorly along the globe where non-preserved plain lidocaine was injected into posterior sub-Tenon?s space. A sideport knife was used to make a paracentesis port inferiortemporally. Vision blue was injectd into the anterior chamber and allowed to sit for 20 seconds. Intraocular phenylephrine/lidocaine was injected into the anterior chamber. The anterior chamber was then filled with viscoelastic. A keratome knife was used to create a half-thickness groove at the limbus and then to construct a three-plane near-clear corneal tunnel extending 2.0mm into clear cornea in the superiortemporal position. . A flap was raised on the anterior capsule and capsulorhexis forceps were used to complete a continuous curvilinear capsulorhexis of 5.0mm. Balanced salt solution was then used to perform cortical cleaving hydrodissection and nuclear hydrodelineation until the lens could be freely rotated within the capsular bag. The lens nucleus was then disassembled and removed within the capsular bag and iris plane using phacoemulsification. Residual cortical material was removed using the 45-degree angled silicone I/A tip with 0.3mm port. The posterior capsule was carefully polished to remove as much residual lens epithelial cells as safely possible. The capsular bag was then inflated and the anterior chamber deepened with viscoelastic. The lens implant described above was inserted into the capsular bag using the Tai and Tai Simplicity Injector. A Kuglen hook was used to dial the IOL into position. The anterior chamber was then slightly over-filled with viscoelastic. The microsope and the patient's head were tilted into the ideal position for viewing of the anterior chamber angle. Viscoelastic was placed on the cornea followed by a surgical gonionlens, and the anterior chamber angle landmarks were identified. The DNP [employer] iStent inject handpiece was introduced into the anterior chamber and the insertion sleeve was retracted once the injector was distal to the pupillary margin. The trocar was advanced through the central portion of the trabecular meshwork and into the back wall of Schlemm's canal in the superiornasal quadrant, with care taken to ensure the micro-insertion tube was perpendicular to the trabecular meshwork. The trabecular meshwork was lightly dimpled and the stent was injected without difficulty. The same procedure was then performed in the inferiornasal quradrant. Both stents were then examined and noted to be in good position within the trabecular meshwork. A moderate amount of blood reflux was noted from the stents. A third stent was then attempted to implant superior naslly, but the stent failed to impant completely. Attempts were made to re-cannulate the stent and re-implant but were unsuccessful. The I/A handpiece was used to remove the stent from the anteiror chamber. The microscope and the patients head were returned to the normal coaxial position. Viscoelatic was then removed from the anterior chamber using the I/A handpiece. The lens implant was noted to center nicely within the capsular bag. The incisions were stromally hydrated, and the anterior chamber was reformed using BSS. Then 0.5cc of moxifloxacin 1.0mg/ml were injected into the capsular bag and anterior chamber. The incisions were checked with a Weck spear and found to be secure. Several drops of ophthalmic povidone-iodine 5% were then applied to the eye followed by two drops of Imprimis combination prednisolone/moxifloxacin/nepafenac solution. The drapes were removed and a clear plastic protective eye shield was placed over the eye. The patient was then returned to Same Day Surgery in stable condition.
--- NOTE | 2023-05-09 15:28 | W.ANESPOSTOP ---
Postoperative Evaluation Date, Time and Location Date Performed: 05/09/23 Time Performed: 14:45 Patient Location: Day Surgery Unit Vital Signs Most Recent Imported Vital Signs: Most Recent Vital Signs Temp Pulse Resp BP Pulse Ox 36.5 C 83 18 146/69 H 98 05/09/23 14:35 05/09/23 14:35 05/09/23 14:35 05/09/23 14:35 05/09/23 14:35 Pain Score Most Recent Pain Score: Most Recent Pain Score Pain Level 0 05/09/23 14:35 Assessment Mental Status: Awake (Alert & Oriented to Patient Baseline) Airway and Respiratory Function: Patent airway with normal (patient baseline) respiratory exam Cardiovascular Function: Hemodynamically Stable Hydration Status: Adequately Hydrated Nausea & Vomiting: No Nausea or Vomiting Pain: Pt. Denies Any Pain Peripheral Nerve Block: Patient did not receive a nerve block
== END 2023-05-09 14:52 | disposition home or self-care (01) ==
LOC: SUR 12:34
PROVIDERS: PCP Family Medicine; Visit Provider Ophthalmology
PROC: (CPT 66991; principal; 2023-05-09 14:15)
DX: H25.011 Cortical age-related cataract, right eye (principal); H25.11 Age-related nuclear cataract, right eye; H40.1112 Primary open-angle glaucoma, right eye, moderate stage; K21.9 Gastro-esophageal reflux disease without esophagitis; I10 Essential (primary) hypertension
CPT/HCPCS: 66991; V2632

== ENCOUNTER 2023-12-03 10:39 | Outpatient (CLI) | payer MEDICARE, SELFPAY ==
[2023-12-03 13:04] LABS: CREATININE 0.8 mg/dL (0.55-1.02); Estimated GFR 77.27 (mL/min/1.73m2); Potassium 3.5 mmol/L (3.5-5.1)
[2023-12-03 13:21] LABS: Hemoglobin A1C 5.6 % (<5.7)
== END 2023-12-03 10:40 | disposition home or self-care (01) ==
LOC: LOS 10:39
PROVIDERS: PCP Family Medicine; Referring Provider Family Medicine; Visit Provider Family Medicine
DX: I10 Essential (primary) hypertension (principal); E11.51 Type 2 diabetes mellitus with diabetic peripheral angiopathy without gangrene
CPT/HCPCS: 36415; 82565; 83036; 84132

== ENCOUNTER 2024-02-05 15:53 | Outpatient (CLI) | payer MEDICARE, SELFPAY ==
--- NOTE | 2024-02-05 10:30 | DI.RAD_ITS ---
Exam(s) XR KNEE RT 2V AP,LAT EXAM: XR KNEE RT 2V AP,LAT INDICATION: annual f/u R TKA. COMPARISON: CR XR KNEE RT 2V AP,LAT from 02/20/2023 TECHNIQUE: 2D digital imaging was performed. Two views. FINDINGS: There has been no change in the appearance of the total knee prosthesis. No abnormal surrounding bon y lucencies. Small joint effusion. DATA REPOSITORY: RADIATION DOSE DELIVERED:
== END 2024-02-05 15:54 | disposition home or self-care (01) ==
LOC: DIORS 15:53
PROVIDERS: PCP Family Medicine; Visit Provider Student in an Organized Health Care Education/Training Program
DX: Z47.1 Aftercare following joint replacement surgery (principal); Z96.651 Presence of right artificial knee joint
CPT/HCPCS: 99213; 73560

== ENCOUNTER 2025-03-07 04:18 | Outpatient (CLI) | payer MEDICARE, SELFPAY ==
[2025-03-07 13:04] LABS: CREATININE 0.6 mg/dL (0.55-1.02); Estimated GFR 93.55 (mL/min/1.73m2); Magnesium 1.9 mg/dL (1.8-2.4); Vitamin B12 586 pg/mL (193-986)
== END 2025-03-07 04:19 | disposition home or self-care (01) ==
LOC: LOS 04:18
PROVIDERS: PCP Family Medicine; Visit Provider Family Medicine
DX: E83.42 Hypomagnesemia (principal); D64.9 Anemia, unspecified; I10 Essential (primary) hypertension
CPT/HCPCS: 36415; 82565; 82607; 83735